=== PATIENT | male | born 1995 | race Caucasian/White ===

== ENCOUNTER 2020-06-05 14:33 | Emergency (ER) | payer OTHER ==
[~2020-06-05] VITALS: Ht 170.2 cm; Wt 59.4 kg
[2020-06-05 14:33] VITALS: BP 125/81
--- NOTE | 2020-06-05 14:47 | NUR ---
AT BEDSIDE FOR EVAL.
== END 2020-06-05 15:17 | disposition home or self-care (01) ==
LOC: ER 14:40
DX: F45.8 Other somatoform disorders (principal); F17.210 Nicotine dependence, cigarettes, uncomplicated